=== PATIENT | female | born 2005 | race African-American/Black ===

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

== ENCOUNTER 2023-02-16 13:11 | Emergency (ER) | payer OTHER, SELFPAY ==
--- NOTE | ~2023-02-16 | XR_ITS ---
EXAM: XR elbow RT min 3V DATE: 02/16/2023 17:15 HISTORY: right elbow pain X 1 WEEK . COMPARISON: None available. FINDINGS: Normal mineralization. No fracture or dislocation. No lytic or blastic lesion. Joint space s are maintained. No erosion or periosteal change. Displacement of the anterior fat pad by joint flui d. IMPRESSION: Right elbow joint effusion, which can accompany occult radial head fractures in a patient of this age. Reviewed, dictated and finalized at location K.
[2023-02-16 13:14] VITALS: BP 147/91; PULSE 110; RESP 16; TEMP 36.8; O2SAT 100
[2023-02-16 13:45] LABS: Basophils Percent Auto 0.2 % (0.2-1.2); Eosinophils Percent Auto 0.2 % (0-4.4); Hematocrit 30.1 % (37.0-47.0); Hemoglobin 9.6 g/dL (12.0-15.0); Immature Granulocyte Absolute 0.17 K/mm3 (0.00-0.031); Lymphocytes Absolute Auto 3.14 K/mm3 (0.9-3.2); Lymphocytes Percent Auto 17.8 % (18.3-44.2); Mean Corpuscular HGB Conc 31.9 g/dl (32-36); Mean Corpuscular Volume 84.8 fl (80-100); Mean Platelet Volume 7.8 fl (7.4-10.4); Monocytes Absolute Auto 1.8 K/mm3 (0.1-0.6); Monocytes Percent Auto 10.4 % (2.6-8.5); Neutrophils Absolute Auto 12.4 K/mm3 (1.3-6.7); Neutrophils Percent Auto 70.4 % (45.5-73.1); Platelet Count Result 352 k/mm3 (150-375); Red Blood Count 3.55 M/mm3 (4.2-5.4); Red Cell Distribution Width 13.2 % (11.5-14.5); White Blood Count 17.6 K/mm3 (4.5-10.0)
[2023-02-16 13:52] LABS: Alanine Aminotransferase 18 U/L (6-35); Alkaline Phosphatase 72 U/L (45-116); Anion Gap 9 mmol/L (8-16); Aspartate Amino Transferase 20 U/L (14-36); Bilirubin,Total 0.4 mg/dL (0.2-1.3); Blood Urea Nitrogen 15 mg/dL (8-21); Calcium 9.5 mg/dL (8.9-10.7); Carbon Dioxide 26 mmol/L (22-30); Chloride 99 mmol/L (98-107); Estimated CRCL calculation 113 ml/min; Estimated Glomerular Filt Rate > 60; Glucose 102 mg/dL (65-110); Potassium 3.1 mmol/L (3.4-5.0); Sodium 134 mmol/L (134-143)
--- NOTE | 2023-02-16 15:20 | PC.NURSE ---
pt continues to wait edp evaluation. warm blanket provided to wrap arm.
--- NOTE | 2023-02-16 15:35 | PC.NURSE ---
spoke with pts mother via phone and status reviewed. mother assured that this rn will have pt contact her upon edp evaluation and tx plan
[2023-02-16 15:38] VITALS: BP 123/86; O2SAT 100
[2023-02-16 15:39] VITALS: BP 122/88; PULSE 78; TEMP 36.9; O2SAT 98
--- NOTE | 2023-02-16 15:45 | PC.NURSE ---
charge was notified that pt has been waiting on a provider for 2hours and 31 minutes. pt is in obvious pain and is crying. Pt sts, I'm having a Lupus attack
[2023-02-16] MEDS: HYDROmorphone HCL INJ (*CRX) 1 MG/ML SYR IV PUSH ×2 (15:55→17:28)
--- NOTE | 2023-02-16 15:58 | ED.EXTPRO ---
HPI - Extremity Problem General Chief complaint: Extremity Problem,Nontraumatic Stated complaint: right arm pain Time Seen by Provider: 02/16/23 15:45 History of Present Illness HPI Narrative: 17-year-old female presented the emergency department for evaluation of right elbow pain. Patient reports she has had right arm pain worsening over the course of the last week. Patient states when she was going to get some food today she had acute worsening of the pain. Patient denies any major falls or injuries but did strike her arm on the car door today. Patient does take prednisone, tacrolimus, mycophenolate, hydrochloric when and dapsone. Patient does have a lupus specialist that she follows up with in [place] and patient is a student at [employer]. Patient called her physician in [place] today and was referred to the emergency department for evaluation. Patient denies any chest pain shortness of breath nausea vomiting diarrhea rash or fever. Related Data Home Medications Medication Instructions Recorded Confirmed cholecalciferol (vitamin D3) 25 25 mcg PO DAILY 07/05/21 mcg (1,000 unit) tablet dapsone 100 mg tablet 07/05/21 famotidine 20 mg tablet 07/05/21 ferrous sulfate 325 mg (65 mg mg 07/05/21 iron) tablet (FeroSul) hydroxychloroquine 200 mg tablet PO 07/05/21 mycophenolate mofetil 500 mg tablet PO 07/05/21 prednisone 10 mg tablet mg 02/16/23 tacrolimus 1 mg capsule, mg 02/16/23 immediate-release Allergies Allergy/AdvReac Type Severity Reaction Status Date / Time Penicillins Allergy Unknown Unknown Verified 02/16/23 14:33 Review of Systems Review of Systems: All systems reviewed & are unremarkable except as noted in HPI and below [facility] Social History Social History (Updated 07/05/21 @ 21:18 by Ajay Mendenhall, ) Social History: College student Exam Narrative: APPEARANCE: Uncomfortable due to right elbow pain HEAD: normocephalic, atraumatic. EYES: PERRLA/EOMI, conjunctivae clear. NOSE: Normal no drainage EARS:TMS clear with good light reflex. THROAT: Pharynx clear, no exudate. NECK: Supple. No adenopathy, no masses. RESPIRATORY: Airway patent, respirations nonlabored. Clear to auscultation bilaterally, no rales, rhonchi, wheezing. CARDIOVASCULAR: Regular rate and rhythm without murmurs rubs or gallops. ABDOMINAL: Soft, nontender, nondistended, normal bowel sounds MUSCULOSKELETAL: Able to move right elbow but does have some discomfort, some elbow effusion but no overlying cellulitis, no warmth no erythema NEURO: Alert. Cranial nerves II through XII intact. Good gait. Good coordination SKIN: No rash Course Course Emergency Course: 17-year-old female presented emergency department for evaluation of right elbow pain. Patient initially thought this was a lupus flare, patient has no other lupus rash no other joint pain. Patient is typical of his pain is in her legs. While patient did have some lupus pain in her legs last week the only pain she is currently having is in her right elbow. Patient is unsure if she had any specific injury of the right elbow. On reexamination patient does have some range of motion of the elbow. Patient has no warmth or erythema of the right elbow. Low suspicion for septic joint. No overlying wounds or cellulitis. Patient does have an elevated leukocytosis of 17.6. Patient does have an elevated ESR and CRP. Urine does have leuk esterase and bacteria and a urine culture was ordered. Elbow x-ray shows an elbow effusion with concern for an anterior fat pad with suspicion for a radial head fracture. No periosteal change. I discussed the case with Dr. Denton.-The thermal molder on-call for Dr. Pardo. A C3 and C4 and Lyme titer were added. Patient's prednisone will be increased to 30 mg a day. Patient was provided a pouch sling and will also be provided follow-up with orthopedics. Patient will have a virtual appointment with her thermal molder in the next few days. P
[2023-02-16] MEDS: SODIUM CHLORIDE 0.9% IV 1,000 ML 999 ML IV CONT (16:05)
[2023-02-16 16:27] LABS: Appearance Urine Cloudy (Clear); Bacteria Urine 1+ /hpf; Bilirubin Urine Negative (Negative); Blood Urine Negative (Negative); Color Urine Yellow (Yellow); Glucose Urine UA Negative (Negative); Ketones Urine Trace mg/dL (Negative); Leukocyte Esterase Ur 2+ LEU/UL (Negative); Nitrate Urine Negative (Negative); Protein Urine Trace mg/dL (Negative); RBC Urine 0-2 /hpf (0-2); Specific Grav Ur 1.019 (1.001-1.035); Squamous Epithelial Cell Urine Moderate /hpf (Few); Urobilinogen Urine 0.2 mg/dL (<2.0); WBC Urine 21-50 /hpf; pH Urine 6.5 (5.0-9.0)
[2023-02-16 16:31] LABS: Add Urine Microscopic? YES
[2023-02-16 16:31] LABS: CRP 13.8 mg/dL (<1.0)
[2023-02-16 16:55] LABS: Erythrocyte Sedimentation Rate 101 mm/hr (0-20)
[2023-02-16 19:27] VITALS: BP 118/78; PULSE 92; RESP 13; O2SAT 100
[2023-02-16] MEDS: methylPREDNISolone SOD SUCC 40 MG VIAL IV PUSH (19:28)
[2023-02-16] MEDS: HYDROmorphone HCL INJ (*CRX) 1 MG/ML SYR 0.5 MG IV PUSH (19:29)
== END 2023-02-16 20:00 | disposition home or self-care (01) ==
PROVIDERS: Emergency Provider Emergency Medicine
DX: S52.121A Displaced fracture of head of right radius, initial encounter for closed fracture (principal); X58.XXXA Exposure to other specified factors, initial encounter
CPT/HCPCS: 36415; 73080; 80053; 81001; 85025; 85652; 86140; 86160; 87086; 96361; 96374; 96375; 96376; 99284; A4565; J1170; J2920; J7030

== ENCOUNTER 2023-03-08 13:50 | Outpatient (RCR) | payer OTHER, SELFPAY ==
--- NOTE | 2023-03-08 14:53 | PTOPEVAL1 ---
Assessment and note entered by Vern Beckett, PT Evaluation Information Assessment Status Evaluation Diagnosis Elbow Effusion Onset 02/02/23 Subjective Information Reports that she is aching in lateral elbow and hurts to straighten. She originally had some shoulder pain as well, but that seems improved. No night pain. She is right handed. 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 She has lupus and has a history of inflammatory related issues in willy legs secondary to this in past. Reports that she has been most concerned with finite motor control and her hand. Reported Pain Level Pain Score 3: Self Report Assessment PT Clinical Summary Ms. Art presents with elbow inflammation and contracture with no known mechanism of injury at this time. She does not show any indication of cervical or shoulder involvement but reports a history of neurological type symptoms in hand. I have recommended transition to OT with our certified hand therapist to address deficits and self care issues based on findings. Plan of Care PT Services Indicated No These treatments will address the objective and functional deficits as defined above. The patient will be advanced safely and appropriately in order for the patient to progress towards his/her prior level of function. Additional exercises will be introduced and as well as a comprehensive home exercise program upon discharge, if needed, ?to ensure carryover of functional gains achieved in the clinic. This treatment plan has been reviewed and agreement upon by the patient.
--- NOTE | 2023-03-29 07:36 | PTOPDC ---
Assessment and note entered by Vern Beckett, PT Evaluation Information Assessment Status Discharge - Pt Not Present Diagnosis Elbow Effusion Onset 02/02/23 Subjective Information Reports that she is aching in lateral elbow and hurts to straighten. She originally had some shoulder pain as well, but that seems improved. No night pain. She is right handed. 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 She has lupus and has a history of inflammatory related issues in willy legs secondary to this in past. Reports that she has been most concerned with finite motor control and her hand. Assessment PT Clinical Summary Patient was seen for PT evaluation and transitioned to Occupational Therapy. She will be discharged at this time from Physical therapy. Please see evaluation for PT discharge status. Plan of Care PT Services Indicated No
== END 2023-03-29 12:04 | disposition home or self-care (01) ==
LOC: ANHPT 13:50
PROVIDERS: Visit Provider Orthopaedic Surgery
DX: M25.421 Effusion, right elbow (principal)
CPT/HCPCS: 97161

== ENCOUNTER 2023-03-23 12:30 | Outpatient (RCR) | payer MEDICAID, OTHER, SELFPAY ==
--- NOTE | 2023-03-18 11:09 | OTOPEVAL1 ---
Assessment and note entered by Camilo Tom, JAYLAN/Leonard, CHT Evaluation Information Assessment Status Evaluation Diagnosis Right elbow effusion Onset 02/02/23 Subjective Information Cause unknown. Initial onset was sudden pain in the elbow and this progressed to being pain too severe for her to handle, which brought her to the hospital. X-ray ruled out fracture. 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 Functionally having difficulties writing, reaching for items overhead, brushing her teeth, turning a pizarro in a door, putting her hair in a ponytail. Reporting no paresthesias. Reported Pain Level Pain Score 2: Self Report Assessment OT Clinical Summary Patient referred to outpatient OT with a decline in right UE use due to elbow pain and stiffness. Functional deficits include any activities that require maximal elbow flexion, such as brushing teeth and grooming tasks. Also limited with heavier lifting due to pain. Skilled OT indicated to reduce pain and to maximize functional ROM and strength to facilitate optimal right UE use for ADLs and work tasks. Plan of Care Interventions Therapeutic Exercise,Manual Therapy,Therapeutic Activities,Hot Pack/Cold Pack,Paraffin OT Services Indicated Yes Treatment Frequency and 1x/week for 4 weeks Duration These treatments will address the objective and functional deficits as defined above. The patient will be advanced safely and appropriately in order for the patient to progress towards his/her prior level of function. Additional exercises will be introduced and as well as a comprehensive home exercise program upon discharge, if needed, ?to ensure carryover of functional gains achieved in the clinic. This treatment plan has been reviewed and agreement upon by the patient.
--- NOTE | 2023-03-18 11:09 | OPREHPOC ---
Outpatient Therapy Plan of Care This is a Multidisciplinary Plan of Care that may contain components documented by all disciplines (PT, OT, and ST.) OT Problem 1 OT Problem #1 Knowledge Deficit OT Goal 1 Goal 1. Patient to be independent with instructed materials. Target Visit 5 OT Problem 2 OT Problem #2 Pain OT Goal 1 Goal 1. Patient to be independent with non-medication pain management: - ROM - heat/ice Target Visit 5 OT Problem 3 OT Problem #3 Impaired Range of Motion OT Goal 1 Goal Patient to increase active ROM of the right UE: 1. elbow flexion to 135 degrees 2. elbow extension to -15 degrees 3. forearm pronation to 80 degrees Target Visit 5 OT Problem 4 OT Problem #4 Impaired Strength OT Goal 1 Goal Increase functional strength of the right elbow as evidenced by: 1. patient being able to complete elbow extension in supine against gravity x10 reps 2. patient being able to complete elbow flexion strengthening with red t-band x20 reps 3. 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 Target Visit 5
--- NOTE | 2023-03-29 11:06 | PCOTNOTE ---
Patient did not show up for scheduled appointment this date. Called patient and unable to leave voicemail.
--- NOTE | 2023-04-08 10:29 | PCOTNOTE ---
Patient did not show up for scheduled appointment this date. Called patient and she did not answer. Unable to leave voicemail.
--- NOTE | 2023-04-12 15:09 | OTOPDC ---
Assessment and note entered by JAYLAN Pryor/Leonard, CHT Discharge Summary 04/12/23 OT Clinical Summary Renetta was initially evaluated on 03/18/23 with dx of right elbow effusion. She was experiencing pain with ROM/use. Elbow ROM was limited to 125 degrees of flexion and -40 degrees of extension. She was issued active/passive ROM HEP. A week later her ROM improved, measuring 140 degrees of flexion (symmetrical to the left elbow) and -15 degrees of extension. She was having markedly less pain and was able to use her arm for functional tasks again. Her HEP was progressed to strengthening. She then no-showed for the rest of her appointments. We are discharging the patient from skilled services at this time.
== END 2023-04-13 08:35 | disposition home or self-care (01) ==
LOC: ANHGOSHOT 12:30
PROVIDERS: Visit Provider Orthopaedic Surgery
DX: M25.421 Effusion, right elbow (principal)
CPT/HCPCS: 97110; 97165; 99199

== ENCOUNTER 2023-04-15 16:36 | Emergency (ER) | payer OTHER, MEDICAID, SELFPAY ==
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
[2023-04-15 16:57] VITALS: BP 120/83; PULSE 71; RESP 16; TEMP 36.3; O2SAT 100
[2023-04-15] MEDS: ACETAMINOPHEN 500 MG TABLET 1000 MG PO (20:26)
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
[2023-04-15 22:25] VITALS: BP 112/76; PULSE 69; RESP 20; O2SAT 100
== END 2023-04-15 22:29 | disposition home or self-care (01) ==
PROVIDERS: Emergency Provider Nurse Practitioner Family
DX: S39.012A Strain of muscle, fascia and tendon of lower back, initial encounter (principal); M32.9 Systemic lupus erythematosus, unspecified; V49.40XA Driver injured in collision with unspecified motor vehicles in traffic accident, initial encounter
CPT/HCPCS: 72125; 72131; 81025; 99284; A9270